=== PATIENT | female | born 2000 | race Caucasian/White ===

== ENCOUNTER → 2021-07-30 | Outpatient (CLI) | payer OTHER ==
--- NOTE | 2021-07-31 07:44 | CARD ---
MR#: [id number] Date of Study: 07/30/2021 Ordering Physician: NIXON LORA, Referring Physician: NIXON LORA, Tech: Nikolas Evans [facility] APPROVED REPORT EXAM: Two-dimensional and M-mode echocardiogram with Doppler and color Doppler. Other Information Quality : AverageHR: 80bpm Rhythm : NSRTechnically limited study due to body habitus. INDICATION Dyspnea Syncope Family history of valve disease RISK FACTORS Family History 2D DIMENSIONS Left Atrium(2D)2.8 (1.6-4.0cm)IVSd0.9 (0.7-1.1cm) Aortic Root(2D)2.4 (2.0-3.7cm)LVDd4.1 (3.9-5.9cm) LVOT Diameter1.8 (1.8-2.4cm)PWd0.7 (0.7-1.1cm) LVDs2.2 (2.5-4.0cm)FS (%) 46.9 % SV57.4 mlLVEF(%)78.8 (>50%) Aortic Valve AoV Peak Bryan.110.4cm/sAoV VTI21.7cm AO Peak GR.4.9mmHgLVOT Peak Bryan.81.1cm/s LVOT VTI 14.96cmAO Mean GR.3mmHg RIDGE (VMAX)1.05pw0EJZ (VTI)1.73cm2 Mitral Valve MV E Qwzaqrwe00.1cm/sMV E Peak Gr.4mmHg MV DECEL [id number] A Ocyzksfu91.5cm/s MV E Mean Gr.1mmHgE/A Ratio1.2 Pulmonary Valve PV Peak Bmcrcwwd496.1cm/sPV Peak Grad.5mmHg Tricuspid Valve TR P. Hpomxlbm493lm/sTR Peak Gr.14mmHg Pulmonary Vein S1 Almitacl00.6cm/sD2 Cthxrtms22.2cm/s LEFT VENTRICLE The left ventricle is normal size. There is normal left ventricular wall thickness. The left ventricu lar systolic function is normal and the ejection fraction is within normal range. EF 55% There is nor mal LV segmental wall motion. The left ventricular diastolic function and filling is normal for age. No left ventricle thrombus noted on this study. There is no ventricular septal defect visualized. The re is no left ventricular aneurysm. There is no mass noted in the left ventricle. RIGHT VENTRICLE The right ventricle is normal size. There is normal right ventricular wall thickness. The right ventr icular systolic function is normal. ATRIA The left atrium size is normal. The right atrium size is normal. The interatrial septum is intact wit h no evidence for an atrial septal defect or patent foramen ovale as noted on 2-D or Doppler imaging. AORTIC VALVE The aortic valve is normal in structure and function. Doppler and Color Flow revealed no significant aortic regurgitation. There is no significant aortic valvular stenosis. There is no aortic valvular v egetation. MITRAL VALVE The mitral valve is normal in structure and function. There is no evidence of mitral valve prolapse. There is no mitral valve stenosis. Doppler and Color Flow revealed no mitral valve regurgitation note d. TRICUSPID VALVE The tricuspid valve is normal in structure and function. Doppler and Color Flow revealed trace tricus pid regurgitation. There is no tricuspid valve prolapse or vegetation. There is no tricuspid valve st enosis. PULMONIC VALVE The pulmonary valve is normal in structure and function. Doppler and Color Flow revealed no pulmonic valvular regurgitation. There is no pulmonic valvular stenosis. GREAT VESSELS The aortic root is normal in size. The ascending aorta is normal in size. The pulmonary artery is nor mal. The IVC is normal in size and collapses >50% with inspiration. PERICARDIAL EFFUSION There is no pleural effusion. There is no evidence of significant pericardial effusion. Critical Notification Critical Value: No <Conclusion> The left ventricular systolic function is normal and the ejection fraction is within normal range. EF 55% There is normal LV segmental wall motion. No significant valvular disease noted. Signed by : Doug Null, Electronically Approved : 07/31/2021 07:44:23
== END ==
LOC: ECHO 13:00
PROVIDERS: ATTEND Physician Assistant
DX: R06.00 Dyspnea, unspecified (principal); R55 Syncope and collapse; Z82.49 Family history of ischemic heart disease and other diseases of the circulatory system
CPT/HCPCS: 93306